=== PATIENT | female | born 1945 | race Caucasian/White ===

== ENCOUNTER 2016-11-01 07:34 | Emergency (ER) | payer MEDICARE, OTHER | END 2016-11-01 09:30 | disposition home or self-care (01) | LOC: ER1 07:34 | DX: S33.5XXA Sprain of ligaments of lumbar spine, initial encounter (principal); S93.402A Sprain of unspecified ligament of left ankle, initial encounter; S83.92XA Sprain of unspecified site of left knee, initial encounter; S73.102A Unspecified sprain of left hip, initial encounter; S80.812A Abrasion, left lower leg, initial encounter; L53.0 Toxic erythema; T50.Z95A Adverse effect of other vaccines and biological substances, initial encounter; Z23 Encounter for immunization; I10 Essential (primary) hypertension; E78.5 Hyperlipidemia, unspecified; Z90.49 Acquired absence of other specified parts of digestive tract; W01.0XXA Fall on same level from slipping, tripping and stumbling without subsequent striking against object, initial encounter; Y92.512 Supermarket, store or market as the place of occurrence of the external cause; Z88.0 Allergy status to penicillin | CPT/HCPCS: 72100; 73502; 73564; 73590; 73610; 90471; 90714; 99283 ==

== ENCOUNTER 2016-12-12 17:40 | Emergency (ER) | payer MEDICARE, OTHER ==
[2016-12-12 19:29] LABS: HEMOGLOBIN 11.7 gm/dl (12.3-15.3); RED BLOOD COUNT 4.44 M/UL (4.00-5.10); WHITE BLOOD COUNT 7.5 K/UL (4.5-11.0)
[2016-12-12 19:45] LABS: BUN/CREATININE RATIO 23 (0-10)
== END 2016-12-12 21:05 | disposition home or self-care (01) ==
LOC: ER1 17:40
PROVIDERS: Physician Assistant Medical
DX: B02.9 Zoster without complications (principal); E11.9 Type 2 diabetes mellitus without complications; I10 Essential (primary) hypertension; E78.5 Hyperlipidemia, unspecified; Z90.710 Acquired absence of both cervix and uterus; Z90.49 Acquired absence of other specified parts of digestive tract; Z88.0 Allergy status to penicillin; Z79.84 Long term (current) use of oral hypoglycemic drugs
CPT/HCPCS: 36415; 80053; 81015; 83690; 85025; 96374; 99282; J2405; J7030

== ENCOUNTER 2017-01-14 17:10 | Emergency (ER) | payer MEDICARE, OTHER ==
[2017-01-14 20:13] LABS: HEMOGLOBIN 12.3 gm/dl (12.3-15.3); RED BLOOD COUNT 4.62 M/UL (4.00-5.10); WHITE BLOOD COUNT 6.8 K/UL (4.5-11.0)
[2017-01-14 20:33] LABS: BUN/CREATININE RATIO 23 (0-10)
== END 2017-01-14 23:55 | disposition home or self-care (01) ==
LOC: ER1 17:10
PROVIDERS: Family Medicine
DX: R07.9 Chest pain, unspecified (principal); M54.6 Pain in thoracic spine; G89.29 Other chronic pain; R10.9 Unspecified abdominal pain; R11.10 Vomiting, unspecified
CPT/HCPCS: 36415; 80053; 81001; 82150; 82550; 82553; 83690; 83874; 84484; 85025; 85610; 93005; 99284; J7040; J7050; Q9963

== ENCOUNTER → 2017-02-10 | Outpatient (CLI) | payer MEDICARE, OTHER | LOC: MAMO 12:50 | DX: Z12.31 Encounter for screening mammogram for malignant neoplasm of breast (principal); Z90.710 Acquired absence of both cervix and uterus | CPT/HCPCS: G0202 ==

== ENCOUNTER → 2020-09-11 | Outpatient (CLI) | payer MEDICARE, OTHER ==
[~2020-09-11] MED LIST: ASPIR 8181 MG PO; BENADRYL 25MG C25 MG PO; CARAFATE1 GM PO; CRESTOR40 MG PO; ELIQUIS 2.5 MG2.5 MG PO; FEOSOL325 MG PO; FLEXERIL 10 MG10 MG PO; HYDROCHLOROTHIA25 MG PO; HYDROCODON-ACE1 EAC1 PO; IBUPROFEN800 MG PO; KLONOPIN TAB 00.5 MG PO; LOSARTAN-HCTZ1 EAC1 PO; MEDROL4 MG PO; MELATONIN10 MG PO; METAMUCIL MULT660 GM PO; MIRTAZAPINE30 MG PO; MOBIC15 MG PO; NAPROXEN250 MG PO; NORCO 5-325 TA1 EACH PO; NORVASC 5 MG TAB5 MG PO; PERCOCET 5/325 T1 EA PO; PHENERGAN 12.12.5 M1 PO; PHENERGAN 25 MG25 M1 PO; PREDNISONE 50 M50 MG PO; PROTONIX40 MG PO; PROZAC40 MG PO; TESSALON PERLE100 MG PO; VIBRAMYCIN100 MG PO; Voltaren Gel 1 % TOP; ZESTRIL 40 MG T40 MG PO; ZETIA10 MG PO; ZOFRAN ODT4 MG PO; ZOFRAN4 MG PO
== END ==
LOC: RT 10:49
DX: I10 Essential (primary) hypertension (principal); R00.1 Bradycardia, unspecified
CPT/HCPCS: 93005

== ENCOUNTER → 2020-11-01 | Outpatient (CLI) | payer MEDICARE, OTHER | LOC: KOH-I 14:57 | DX: M54.42 Lumbago with sciatica, left side (principal); M16.12 Unilateral primary osteoarthritis, left hip; M43.16 Spondylolisthesis, lumbar region; Z98.1 Arthrodesis status | CPT/HCPCS: 72100; 73502 ==

== ENCOUNTER → 2020-11-11 | Outpatient (CLI) | payer MEDICARE, OTHER | LOC: MRI 10:05 | DX: M54.42 Lumbago with sciatica, left side (principal); M43.16 Spondylolisthesis, lumbar region; M25.78 Osteophyte, vertebrae | CPT/HCPCS: 36415; 72158; 82565; A9577 ==

== ENCOUNTER 2021-05-01 08:05 | Emergency (ER) | payer OTHER | END 2021-05-01 10:36 | disposition home or self-care (01) | LOC: ER1 08:05 | DX: S46.912A Strain of unspecified muscle, fascia and tendon at shoulder and upper arm level, left arm, initial encounter (principal); E78.5 Hyperlipidemia, unspecified; I10 Essential (primary) hypertension; Z90.49 Acquired absence of other specified parts of digestive tract; Z90.710 Acquired absence of both cervix and uterus; Z88.0 Allergy status to penicillin; Z88.2 Allergy status to sulfonamides; Z23 Encounter for immunization; W19.XXXA Unspecified fall, initial encounter | CPT/HCPCS: 73030; 90471; 90715; 99283 ==

== ENCOUNTER → 2021-06-02 | Outpatient (CLI) | payer MEDICARE, OTHER | LOC: KOH-I 14:41 | DX: J20.9 Acute bronchitis, unspecified (principal) | CPT/HCPCS: 71046 ==

== ENCOUNTER 2022-04-28 08:26 | Emergency (ER) | payer OTHER ==
[2022-04-28] MEDS ORDERED: HYDROCODON-ACE1 EAC4 PO (10:57)
== END 2022-04-28 11:32 | disposition home or self-care (01) ==
LOC: ER1 08:26
DX: M54.50 Low back pain, unspecified (principal); M25.551 Pain in right hip; I10 Essential (primary) hypertension
CPT/HCPCS: 72131; 73502; 99284